=== PATIENT | female | born 1960 | race Caucasian/White ===

== ENCOUNTER 2019-04-19 10:01 | Emergency (ER) | payer SELFPAY ==
[~2019-04-19] VITALS: Ht 154.9 cm; Wt 87.7 kg
[~2019-04-19 10:01] MED LIST: AMLO1TAB11 PO; ATEN50TA8 PO
[2019-04-19 10:04] VITALS: BP 135/76
[2019-04-19 10:14] VITALS: BP 153/88
[2019-04-19] MEDS ORDERED: ONDANSETRON 4 MG/2 ML VIAL IVP ONE (10:30)
[2019-04-19] MEDS ORDERED: NACL 0.9% 1,000 ML IV ONE (10:30)
[2019-04-19] MEDS ORDERED: LOPERAMIDE 2 MG CAP PO ONE (10:30)
[2019-04-19] MEDS ORDERED: KETOROLAC 30 MG/ML VIAL IVP ONE (10:30)
[2019-04-19 10:53] LABS: APPEARANCE,URINE CLEAR (CLEAR); BILIRUBIN,URINE NEGATIVE (NEGATIVE); BLOOD, URINE 2+ (NEGATIVE); COLOR,URINE YELLOW (YELLOW); LEUKOCYTE ESTERASE ,URINE NEGATIVE (NEGATIVE); NITRITE, URINE NEGATIVE (NEGATIVE); PH,URINE 6.5 (5.0-9.0); UGLUCOSE NEGATIVE (NEGATIVE)
--- NOTE | 2019-04-19 10:54 | NUR ---
Patient returned from CT scan. RN re-evaluating patient at bedside.
[2019-04-19 10:56] LABS: ANION GAP 14.4 (8-16); BASOPHILS # (AUTO) 0.1 K/uL (0.00-0.22); BASOPHILS % (AUTO) 0.5 % (0.0-2.0); CARBON DIOXIDE 25.3 mmol/L (21-32); CREATININE 0.6 mg/dL (0.6-1.3); EOSINOPHILS % (AUTO) 0.1 % (0.0-4.0); HEMATOCRIT 44.1 % (36-48); HEMOGLOBIN 14.4 g/dL (12.0-16.0); LYMPHOCYTES # (AUTO) 0.5 K/uL (2.5-16.5); LYMPHOCYTES % (AUTO) 3.7 % (20.5-51.1); MEAN CORPUSCULAR HEMOGLOBIN 29 pg (27-31); MEAN CORPUSCULAR HGB CONC 33 g/dL (33-37); MEAN CORPUSCULAR VOLUME 89.6 fL (80-94); MONOCYTES # (AUTO) 0.6 K/uL (0.8-1.0); MONOCYTES % (AUTO) 4.8 % (1.7-9.3); NEUTROPHILS # (AUTO) 12.1 K/uL (1.8-7.7); NEUTROPHILS % (AUTO) 90.9 % (42.2-75.2); PLATELET COUNT (AUTO) 300 K/uL (140-450); POTASSIUM 3.7 mmol/L (3.5-5.1); RED BLOOD CELL COUNT(AUTO) 4.92 MIL/uL (4.20-5.40); RED CELL DISTRIBUTION WIDTH 13.4 % (11.6-13.7); WHITE BLOOD COUNT (AUTO) 13.3 K/uL (4.8-10.8)
[2019-04-19 11:02] LABS: WBC,URINE 0-5 /HPF (0-5)
[2019-04-19 11:05] LABS: ALBUMIN 3.6 g/dL (3.4-5.0); TOTAL BILIRUBIN 0.7 mg/dL (0.0-1.0)
--- NOTE | 2019-04-19 11:16 | NUR ---
Assumed patient care, nursing assessment completed. Seen and evaluated by ADELA ROBERTS completed. Patient endorsing abd pain with N/V/D, onset yesterday.
[2019-04-19 12:19] VITALS: BP 145/75
--- NOTE | 2019-04-19 12:20 | NUR ---
Dispo and medical decision making, DC home with instructions regarding Viral gastroenteritis, and prescriptions. All instructions understood by patient accordingly, VS WNL.
== END 2019-04-19 12:20 | disposition home or self-care (01) ==
LOC: MED 10:01
DX: R11.2 Nausea with vomiting, unspecified (principal); R19.7 Diarrhea, unspecified; I10 Essential (primary) hypertension; Z90.49 Acquired absence of other specified parts of digestive tract; Z79.899 Other long term (current) drug therapy; Z98.890 Other specified postprocedural states
CPT/HCPCS: 36415; 74176; 80053; 81001; 83690; 85025; 96361; 96374; 96375; 99284; J1885; J2405; J7030

== ENCOUNTER 2019-08-06 10:48 | Emergency (ER) | payer OTHER ==
[~2019-08-06] VITALS: Ht 157.5 cm; Wt 89.8 kg
[2019-08-06 11:16] VITALS: BP 149/79
--- NOTE | 2019-08-06 11:18 | NUR ---
TRIAGE COMPLETE. VSS. TO LOBBY AWAITNG BED IN ED.
--- NOTE | 2019-08-06 14:05 | NUR ---
58 Y/O FEMALE C/O BILAT KNEE PAIN + HIP PAIN S/P FALL THIS MORNING. PT REPORTS SHE FELL FORWARD WHEN SITTING ON CHAIR AND FELL ON BOTH KNEES. DENIES HEAD INJURY/LOC. PT TO AMBULATE WITH CANE TO BED. CLAIMS SHE TOOK TYLENOL AT 1300 AND PAIN IS AT A 3/10. ROM INTACT IN BILAT LOWER EXTR. CMS+. NO DEFORMITY NOTED. SKIN INTACT. PMH: HTN NKA
[2019-08-06 15:39] VITALS: BP 149/79
--- NOTE | 2019-08-06 15:40 | NUR ---
Patient discharged with v/s stable. Written and verbal after care instructions given and explained. Patient alert, oriented and verbalized understanding of instructions. Ambulatory with steady gait. All questions addressed prior to discharge. ID band removed. Patient advised to follow up with PMD. Rx of norco and motrin given. Patient educated on indication of medication including possible reaction and side effects. Opportunity to ask questions provided and answered.
== END 2019-08-06 15:40 | disposition home or self-care (01) ==
LOC: MED 10:48
DX: M25.552 Pain in left hip (principal); M25.562 Pain in left knee; I10 Essential (primary) hypertension; Z98.890 Other specified postprocedural states; Z79.899 Other long term (current) drug therapy
CPT/HCPCS: 73502; 73562; 99284

== ENCOUNTER 2021-07-04 13:02 | Emergency (ER) | payer MEDICAID, OTHER ==
[~2021-07-04] VITALS: Ht 157.5 cm; Wt 85.7 kg
[2021-07-04 13:48] VITALS: BP 149/82
--- NOTE | 2021-07-04 13:53 | NUR ---
PT SENT TO LOBBY
[2021-07-04] MEDS ORDERED: CEPH-588 PO (15:02)
--- NOTE | 2021-07-04 17:27 | NUR ---
PT SEEN AND D/C BY RONALDO WILSON, NO NURSING INTERVENTIONS PROVIDED
--- NOTE | 2021-07-04 17:28 | NUR ---
Patient discharged with v/s stable. Written and verbal after care instructions ABOUT UTI given and explained. Patient alert, oriented and verbalized understanding of instructions. Ambulatory with steady gait. All questions addressed prior to discharge. ID band removed. Patient advised to follow up with PMD. Rx of KEFLEX given. Patient educated on indication of medication including possible reaction and side effects. Opportunity to ask questions provided and answered. PT D/C BY RONALDO WILSON
== END 2021-07-04 17:28 | disposition home or self-care (01) ==
LOC: MED 13:02
DX: N39.0 Urinary tract infection, site not specified (principal); I10 Essential (primary) hypertension; Z88.0 Allergy status to penicillin; Z79.899 Other long term (current) drug therapy; Z90.49 Acquired absence of other specified parts of digestive tract; Z98.890 Other specified postprocedural states; Z90.710 Acquired absence of both cervix and uterus
CPT/HCPCS: 81002; 99283

== ENCOUNTER 2023-01-09 20:54 | Emergency (ER) | payer OTHER ==
[~2023-01-09] VITALS: Ht 157.5 cm; Wt 83.9 kg
[~2023-01-09 20:54] MED LIST changes: +CEPH-588 PO
[2023-01-09 21:06] VITALS: BP 182/90; PULSE 106; RESP 18; TEMP 97.6; O2SAT 100
--- NOTE | 2023-01-09 21:12 | NUR ---
PT TAKEN TO BED 2
[2023-01-09 21:20] VITALS: TEMP 97.6
[2023-01-09] MEDS ORDERED: ACETAMINOPHEN 325 MG TAB PO ONE (21:20)
[2023-01-09] MEDS ORDERED: IBUPROFEN 400 MG TAB PO ONE (21:20)
--- NOTE | 2023-01-09 21:30 | NUR ---
X-ray at bedside.
--- NOTE | 2023-01-09 21:40 | NUR ---
Patient is a 62/F who came in due to left knee and left wrist pain, 11/13, radiating to left upper and lower extremities x 1 hour ago associated with limited movemet after sustaining a witnessed fall when she tripped on her slipper. Patient also hit her head with no LOC. Patient denies intake of blood thinners or pain meds. PMHx: HTN NKA
[2023-01-09] MEDS ORDERED: ACET-11169 PO (22:14)
[2023-01-09 22:40] VITALS: BP 132/67; PULSE 87; RESP 18; O2SAT 96
--- NOTE | 2023-01-09 22:40 | NUR ---
Patient discharged. Written and verbal after care instructions given and explained. Patient alert, oriented and verbalized understanding of instructions. Wheel Chair Assisted. All questions addressed prior to discharge. ID band removed. Patient advised to follow up with PMD. Rx of Acetaminophen given. Patient educated on indication of medication including possible reaction and side effects. Opportunity to ask questions provided and answered.
== END 2023-01-09 22:40 | disposition home or self-care (01) ==
LOC: MED 20:54
DX: M79.602 Pain in left arm (principal); M25.562 Pain in left knee; I10 Essential (primary) hypertension; Z79.899 Other long term (current) drug therapy; W01.0XXA Fall on same level from slipping, tripping and stumbling without subsequent striking against object, initial encounter; Y93.89 Activity, other specified; Y92.89 Other specified places as the place of occurrence of the external cause; Y99.8 Other external cause status
CPT/HCPCS: 73110; 73562; 99284

== ENCOUNTER 2023-08-19 16:12 | Emergency (ER) | payer OTHER ==
[~2023-08-19] VITALS: Ht 152.4 cm; Wt 88.5 kg
[~2023-08-19 16:12] MED LIST changes: +ACET-11169 PO
[2023-08-19 16:34] VITALS: BP 155/84; PULSE 89; RESP 19; TEMP 97.6; O2SAT 99
[2023-08-19] MEDS: ACETAMINOPHEN 325 MG TAB PO ONE (17:15)
[2023-08-19] MEDS ORDERED: PYR100 PO (17:33)
[2023-08-19] MEDS ORDERED: NITR100C7 PO (17:33)
== END 2023-08-19 17:43 | disposition home or self-care (01) ==
LOC: MED 16:12
DX: N39.0 Urinary tract infection, site not specified (principal); H92.09 Otalgia, unspecified ear; H93.19 Tinnitus, unspecified ear; I10 Essential (primary) hypertension; Z79.899 Other long term (current) drug therapy; Z88.0 Allergy status to penicillin
CPT/HCPCS: 81002; 87086; 87186; 99283

== ENCOUNTER 2024-04-04 16:00 | Emergency (ER) | payer OTHER ==
[~2024-04-04] VITALS: Ht 152.4 cm; Wt 90.5 kg
[~2024-04-04 16:00] MED LIST changes: +NITR100C7 PO; +PYR100 PO
[2024-04-04 16:06] VITALS: BP 178/92; PULSE 67; RESP 16; TEMP 98.8; O2SAT 96
[2024-04-04 16:36] LABS: BASOPHILS # (AUTO) 0.1 K/uL (0.00-0.22); BASOPHILS % (AUTO) 0.7 % (0.0-2.0); EOSINOPHILS # (AUTO) 0.1 K/uL (0-0.4); EOSINOPHILS % (AUTO) 0.7 % (0.0-4.0); HEMATOCRIT 41.3 % (36-48); HEMOGLOBIN 13.5 g/dL (12.0-16.0); LYMPHOCYTES # (AUTO) 2.5 K/uL (2.5-16.5); LYMPHOCYTES % (AUTO) 16.5 % (20.5-51.1); MEAN CORPUSCULAR HEMOGLOBIN 29 pg (27-31); MEAN CORPUSCULAR HGB CONC 33 g/dL (33-37); MEAN CORPUSCULAR VOLUME 89.2 fL (80-94); MONOCYTES # (AUTO) 1.1 K/uL (0.8-1.0); MONOCYTES % (AUTO) 7.6 % (1.7-9.3); NEUTROPHILS # (AUTO) 11.2 K/uL (1.8-7.7); NEUTROPHILS % (AUTO) 74.5 % (42.2-75.2); PLATELET COUNT (AUTO) 307 K/uL (140-450); RED BLOOD CELL COUNT(AUTO) 4.63 MIL/uL (4.20-5.40); RED CELL DISTRIBUTION WIDTH 13.6 % (11.6-13.7); WHITE BLOOD COUNT (AUTO) 15.1 K/uL (4.8-10.8)
[2024-04-04 16:52] LABS: ANION GAP 11.4 (8-16); CALCIUM 9.3 mg/dL (8.5-10.1); CARBON DIOXIDE 29.2 mmol/L (21-32); CREATININE 0.8 mg/dL (0.6-1.3); POTASSIUM 3.6 mmol/L (3.5-5.1)
[2024-04-04 16:56] LABS: ALBUMIN 3.7 g/dL (3.4-5.0); BILIRUBIN,DIRECT 0.1 mg/dL (0.0-0.3); TOTAL BILIRUBIN 0.5 mg/dL (0.0-1.0); TOTAL PROTEIN, SERUM 7.9 g/dL (6.4-8.2)
[2024-04-04 17:12] LABS: APPEARANCE,URINE CLEAR (CLEAR); BILIRUBIN,URINE NEGATIVE (NEGATIVE); BLOOD, URINE 3+ (NEGATIVE); COLOR,URINE ORANGE (YELLOW); LEUKOCYTE ESTERASE ,URINE 1+ (NEGATIVE); NITRITE, URINE POSITIVE (NEGATIVE); PH,URINE 6.5 (5.0-9.0); PROTEIN,URINE 1+ (NEGATIVE); UGLUCOSE TRACE (NEGATIVE)
[2024-04-04 17:24] LABS: BACTERIA,URINE 10-30 (MOD) /HPF (None Seen); RBC,URINE 11-20 (MOD) /HPF (0-5); SQUAMOUS EPITHELIAL CELL,UR 0-3 (FEW) /LPF (0-3 (FEW)); WBC,URINE 16-25 (MOD) /HPF (0-5)
[2024-04-04] MEDS ORDERED: LIDOCAINE MPF 1% 5 ML ONE (17:39)
[2024-04-04] MEDS ORDERED: cefTRIAXone 1,000 MG VIAL ONE (17:39)
[2024-04-04] MEDS: cefTRIAXone 1,000 MG in LIDOCAINE MPF 1% 2.1 ML IM ONE (17:49)
[2024-04-04] MEDS ORDERED: CIPR500T4 PO (17:49)
[2024-04-04] MEDS ORDERED: IBUP-2213 PO (17:49)
[2024-04-04] MEDS ORDERED: PHEN-1877 PO (17:51)
[2024-04-04 17:54] VITALS: BP 137/91; PULSE 88; RESP 20; TEMP 98.3; O2SAT 97
== END 2024-04-04 18:03 | disposition home or self-care (01) ==
LOC: MED 16:00
DX: N12 Tubulo-interstitial nephritis, not specified as acute or chronic (principal); I10 Essential (primary) hypertension; Z90.49 Acquired absence of other specified parts of digestive tract; Z79.899 Other long term (current) drug therapy; Z88.0 Allergy status to penicillin
CPT/HCPCS: 36415; 80048; 80076; 81001; 83690; 85025; 87086; 96372; 99283; J0696; J2003